=== PATIENT | female | born 1980 | race Caucasian/White ===

== ENCOUNTER → 2018-05-30 18:14 | Outpatient (CLI) | payer OTHER, SELFPAY | PROVIDERS: Visit Provider Nurse Practitioner Family | DX: J00 Acute nasopharyngitis [common cold] (principal); R69 Illness, unspecified ==

== ENCOUNTER → 2019-06-07 15:18 | Outpatient (CLI) | payer OTHER, SELFPAY ==
--- NOTE | 2019-06-07 15:19 | US_ITS ---
PROCEDURE: US TRANSVAGINAL Patient Age:38Y CLINICAL INDICATION: US T/V Heavy bleeding. Dysfunctional uterine bleeding. Cycles every 2 weeks past 4 months. The COMPARISON: PTV US PELVIS-TRANSVAGINAL ONLY from 10/28/2016 FINDINGS: Uterus of enlarged 10.5 cm in length x5 .5 cm AP x 5.8 cm wide. Endometrium thickened 1.4 cm AP. . scar noted. The Several nabothian cyst about the cervical canal. Largest measuring up to 10 mm length. Ovaries appear within normal limits. Both unremarkable: Left ovary: 2 cm x 2.7 cm X 3 cm Right ovary 2.65 cm x 2.2 cm x 3.15 cm. . No fluid cul-de-sac IMPRESSION: Generous, thickened endometrium Uterus enlarged, but no focal fibroid or mass identified The ovaries normal size and unremarkable But no fluid cul-de-sac Dictated by: Isra Bill MD 06/09/2019 21:57 Electronically signed by Isra Bill MD in [place] 06/09/2019 21:57
--- NOTE | 2019-06-07 15:19 | MM_ITS ---
PROCEDURE: MM DIG MAMM BI DX W/CAD CLINICAL INDICATION: rt breast palpable thickness patient had milk duct drain several years ago now has palpable thickness upper-outer quadrant right breast. There is a history of breast cancer in the patient's paternal great grandmother. COMPARISON: No exams were available for comparison TECHNIQUE: Standard CC and MLO images were obtained. R2 CAD reviewed. In addition spot compression MLO and CC views were obtained FINDINGS: The breasts are composed primarily of fat. However there is asymmetrically increased glandular elements seen in the subareolar region right breast and upper outer quadrant right breast. Additional spot compression views of these areas show no suspicious abnormality. Ultrasound performed the same date showed a couple of small benign-appearing cyst upper outer quadrant at approximately 10 o'clock position mid breast. There are no suspicious microcalcifications. IMPRESSION: Fatty type breast parenchyma with asymmetric glandular elements upper-outer quadrant right breast with no suspicious characteristics BI-RAD Category: 2 Benign Finding(s) FOLLOW-UP: 1YR 1 Year Follow-up beginning at age 41 (A letter has been sent to the patient regarding results of the study.) Dictated by: Dr. Bernardo Srinivasan MD 06/08/2019 11:[address] Bernardo Srinivasan MD in [place] 06/08/2019 11:12
== END ==
PROVIDERS: PCP Family Medicine; Visit Provider Nurse Practitioner Obstetrics & Gynecology
DX: N92.0 Excessive and frequent menstruation with regular cycle (principal)
CPT/HCPCS: 76830; 77066

== ENCOUNTER → 2019-06-08 10:18 | Outpatient (CLI) | payer OTHER, SELFPAY ==
--- NOTE | 2019-06-08 10:34 | US_ITS ---
PROCEDURE: US BREAST RT COMPLETE CLINICAL INDICATION: R92.2 Evaluation of asymmetric glandular tissue right breast, questionable area of thickening felt at this location COMPARISON: MM DIG MAMM BI DX W/CAD from 06/07/2019 FINDINGS: There is somewhat diffusely heterogenic appearance to the breast parenchyma. There are few small hypoechoic cystic lesions at the 10 o'clock position mid breast both measuring less than 5 mm in size. There is no suspicious solid lesion. There is a normal appearing node in the axilla. IMPRESSION: No suspicious cystic or solid lesion identified and recommend the patient beginning annual screening mammography at the age of 41. Dictated by: Dr. Bernardo Srinivasan MD 06/08/2019 11:[address] Bernardo Srinivasan MD in [place] 06/08/2019 11:02
[2019-06-08 11:38] LABS: Basophils % 0.6 % (0.1-2.0); Eosinophils % 0.5 % (0.1-12.0); Hematocrit 44.8 % (37.0-47.0); Hemoglobin 14.2 g/dL (12.2-16.2); Lymphocytes # 2.2 K/mm3 (0.7-4.5); Lymphocytes % 28.8 % (10-50); Mean Corpuscular HGB Conc 31.8 g/dL (31.8-35.4); Mean Corpuscular Hemoglobin 29.5 pg (27.0-31.2); Mean Corpuscular Volume 92.6 fl (81-99); Mean Platelet Volume 7.9 fl (7.4-10.4); Monocytes # 0.4 K/mm3 (0.1-1.0); Monocytes % 5.4 % (1.7-9.3); Neutrophils # 4.8 K/mm3 (1.8-7.8); Neutrophils % 64.7 % (37.0-80.0); Platelet Count 339 K/mm3 (142-424); Red Blood Count 4.84 M/mm3 (4.20-5.40); Red Cell Distribution Width 13.8 % (11.5-17.5); White Blood Count 7.5 K/mm3 (4.8-10.8)
[2019-06-08 11:54] LABS: Alanine Aminotransferase 17 U/L (12-78); Albumin Level 3.8 gm/dL (3.4-5.0); Albumin/Globulin Ratio 1.2 (1.1-1.8); Alkaline Phosphatase 87 U/L (46-116); Anion Gap 14.8 mEq/L (5-15); Aspartate Amino Transferase 7 U/L (15-37); Bilirubin,Total 0.4 mg/dL (0.2-1.0); Blood Urea Nitrogen 15 mg/dL (7-18); Calcium 8.8 mg/dL (8.5-10.1); Carbon Dioxide 24 mmol/L (21.0-32.0); Chloride 104 mmol/L (98-107); Chol/HDL Ratio 5.8 (1-3.5); Cholesterol 260 mg/dL (140-200); Creatinine,Serum 0.57 mg/dL (0.55-1.02); Estimated Glomerular Filt Rate 119 ml/min (>60); Free Thyroxine Index 2.3 ug/dL (5.93-13.13); GFR (African American) 144 ML/MIN (>60); Globulin 3.1 gm/dl (1.3-3.2); Glucose 106 mg/dL (74-106); HDL Cholesterol 45 mg/dL (29-89); LDL Cholesterol 193 mg/dL (0-130); Potassium 4.8 mmoL/L (3.5-5.1); Sodium 138 mmol/L (136-145); T4 (Thyroxine) 6.4 ug/dl (4.7-13.3); Thyroid Stimulating Hormone 0.94 uIU/ml (0.358-3.740); Total Protein,Serum 6.9 gm/dL (6.4-8.2); Triglycerides 109 mg/dL (30-200); Triiodothryronine (T3) Uptake 36 % (31-39); VLDL Cholesterol 22 mg/dL (0-40)
== END ==
PROVIDERS: Visit Provider Nurse Practitioner Obstetrics & Gynecology
DX: Z01.419 Encounter for gynecological examination (general) (routine) without abnormal findings (principal); R53.83 Other fatigue; R92.8 Other abnormal and inconclusive findings on diagnostic imaging of breast
CPT/HCPCS: 36415; 76641; 80053; 80061; 84436; 84443; 84479; 85025

== ENCOUNTER → 2020-01-15 16:45 | Outpatient (CLI) | payer OTHER, SELFPAY | PROVIDERS: PCP Family Medicine; Visit Provider Family Medicine | DX: Z03.818 Encounter for observation for suspected exposure to other biological agents ruled out (principal) | CPT/HCPCS: U0003 ==

== ENCOUNTER → 2020-03-22 15:44 | Outpatient (CLI) | payer OTHER, SELFPAY ==
[2020-03-22 16:58] LABS: Basophils % 0.4 % (0.1-2.0); Eosinophils # 0.1 K/mm3 (0.0-0.4); Eosinophils % 0.9 % (0.1-12.0); Hemoglobin 14.1 g/dL (12.2-16.2); Lymphocytes # 2.4 K/mm3 (0.7-4.5); Lymphocytes % 23.6 % (10-50); Mean Corpuscular HGB Conc 32.1 g/dL (31.8-35.4); Mean Corpuscular Hemoglobin 30.3 pg (27.0-31.2); Mean Corpuscular Volume 94.5 fl (81-99); Mean Platelet Volume 7.3 fl (7.4-10.4); Monocytes # 0.6 K/mm3 (0.1-1.0); Monocytes % 5.8 % (1.7-9.3); Neutrophils # 7.2 K/mm3 (1.8-7.8); Neutrophils % 69.3 % (37.0-80.0); Platelet Count 293 K/mm3 (142-424); Red Blood Count 4.66 M/mm3 (4.20-5.40); Red Cell Distribution Width 12.4 % (11.5-17.5); White Blood Count 10.3 K/mm3 (4.8-10.8)
[2020-03-22 18:00] LABS: Anion Gap 12.7 mEq/L (5-15); Blood Urea Nitrogen 15 mg/dl (7-17); Calcium 9.4 mg/dl (8.4-10.2); Carbon Dioxide 24 mmol/L (22.0-30.0); Chloride 106 mmol/L (98-107); Estimated Glomerular Filt Rate 112 ml/min (>60); GFR (African American) 135 ML/MIN (>60); Glucose 98 mg/dl (74-100); Potassium 4.7 mmoL/L (3.5-5.1); Sodium 138 mmol/L (136-145)
[2020-03-22 19:16] LABS: HCG Qualitative, Serum Negative (Negative)
[2020-03-22 19:51] LABS: Coronavirus 19 IgG Antibody Positive (Negative); Coronavirus 19 IgM Antibody Negative (Negative)
== END ==
PROVIDERS: Visit Provider Nurse Practitioner Obstetrics & Gynecology
DX: Z01.818 Encounter for other preprocedural examination (principal); N92.0 Excessive and frequent menstruation with regular cycle
CPT/HCPCS: 36415; 80048; 84703; 85025; 86328

== ENCOUNTER 2020-03-24 06:10 | Day surgery (SDC) | payer OTHER, SELFPAY ==
[2020-03-24] VITALS (12 sets, daily range): BP systolic 108–163; BP diastolic 60–98; PULSE 85–101; RESP 16–20; TEMP 36.2–36.7; O2SAT 93–96; BMI 34.5
--- NOTE | 2020-03-24 08:02 | HMH.OPNOTE ---
Date of procedure: 03/24/20 Pre-op Diagnosis:: Menorrhagia Post-op Diagnosis:: Menorrhagia Procedure performed:: Hysteroscopy, dilation and curettage, NovaSure ablation Surgeon:: Ken Jeong MD HAND II THERMAL CUTTER:: Anthony Conroy Anesthesia: LMA Estimated blood loss (mL): 50 Operative findings:: She had an anteverted somewhat bulky uterus. The endometrium was lush. There were no polyps. The uterus sounded to 10 cm. Operative note:: She was taken to the operating room where LMA anesthesia was found be adequate. She was prepped and draped in the normal sterile fashion in the lithotomy position. A weighted speculum was placed in the vagina and the anterior lip of the cervix was grasped with a tenaculum. The cervix was then dilated to approximately 6 mm. I then inserted a hysteroscope into the uterine cavity and the findings were as previously dictated. I then performed a gentle curettage with a medium curette. I then sounded the uterus and determine the length of the uterus. The uterus sounded to 10 cm. The length was 6.5 cm. The width was 4.5 cm. This was placed into the NovaSure device. I then inserted the NovaSure device and determine the width of the endometrial cavity. I then ran the device through its program. I further inspected the endometrial cavity and was found to be completely charred. I then injected 30 cc of 0.5% ropivacaine at the 3:00, 5:00, 7:00, and 9:00 positions of the cervix. She tolerated procedure well and was taken to the recovery room in excellent condition. All sponge and instrument counts were correct. The estimated blood loss was less than 50 cc. Condition: stable Disposition: PACU Specimens:: Endometrial curettings Complications:: None
--- NOTE | 2020-03-24 08:12 | HMH.ANESCL ---
[facility] Anesthesia Checklist - Patient Identification Patient Identification: Arm Band, Verbal (Name & ) - Structural Data Admitted From: Home Planned Operative Procedure/s: d and c Consent for Planned Operative Procedure(s) Verified: Yes Verified Documents: History and Physical - NPO Status Verified Time NPO: 00:00 - Chart Verification Results Verified: CBC, BMP - Additional verifications Patient : No Anesthesia Reactions: No Hx Blood Transfusions: No Blood Transfusion Reaction: No Cephalosporin Allergy: No Previous Colonoscopy: No - Cardiovascular Assessment Heart Sounds: S1 & S2 Pulse Strength: Baseline Pulse Rhythm: Regular Peripheral Edema: No - Airway Assessment C-Spine Mobility Assessed: Yes TMJ Mobility Assessed: Yes Dentition: Good Dentition - Neurological Assessment Level of Consciousness: Awake, Alert, Appropriate Hx Seizures: No Numbness or tingling in extremities: No - Anesthesia Plan Anesthesia Risk discussed: Yes Anesthesia Plan: Verified ASA Class: II Anesthesia Type: General [facility] History I have reviewed the patient's past medical history: Yes Medical History: Denies:: Cancer, Diabetes Mellitus Type 1, Diabetes Mellitus Type 2, Internal Pacemaker, MRSA, Seizures *Have you ever received a pneumonia vaccine?: No *Have you received a flu vaccine this season?: No Other Medical History: Reports: Other. Denies: Blood Transfusion Reaction Anesthesia experience/problems:: none Laterality Cases: Bilateral: Tonsillectomy Other Surgeries: Yes: , Dilation and Curettage, Tubal Ligation, Other. 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
--- NOTE | 2020-03-24 08:13 | HMH.ANESI ---
[facility] Anesthesia Record Part I Intake, IV Amount: 500 Estimated blood loss (mL): 10 Urine output (mL): 0 Blood Products used (#): none Blood Pressure: 142/93 SaO2: 94 Pulse Rate: 101 Respiratory Rate: 20 Temperature: 97.2 F Patient is:: Drowsy, Stable Stable to PACU at:: 08:10
--- NOTE | 2020-03-24 09:48 | P.PN_ITS ---
[facility] Anesthesia Record Part II Discharge Time: 08:40 Destination: Surgical Day Care (OP Surgery) PACU nurse assessment reviewed?: Yes Patient Condition:: Good Anesthesia Complications:: None Swallowing reflex intact?: Yes Cyanosis?: No Blood Pressure: 129/74 Pulse Rate: 92 Temperature: 98.0 F Mental Status: Alert & Oriented Pain level:: 3 Nausea and/or vomitting:: None Intake, IV Amount: 50
== END 2020-03-24 09:35 | disposition home or self-care (01) ==
LOC: OR 06:11
PROVIDERS: PCP Family Medicine; Visit Provider Nurse Practitioner Obstetrics & Gynecology
PROC: 0U5B8ZZ Destruction of Endometrium, Via Natural or Artificial Opening Endoscopic (ICD-10-PCS; CPT 58563; principal; 2020-03-24 07:30)
DX: N92.0 Excessive and frequent menstruation with regular cycle (principal); Z79.899 Other long term (current) drug therapy; Z98.51 Tubal ligation status; Z88.6 Allergy status to analgesic agent; Z88.0 Allergy status to penicillin; Z91.048 Other nonmedicinal substance allergy status; N85.2 Hypertrophy of uterus
CPT/HCPCS: 58563; 96374

== ENCOUNTER → 2021-07-26 09:56 | Outpatient (CLI) | payer BC, SELFPAY ==
[2021-07-26 12:09] LABS: HCG,Quantitative < 2 mIU/ml (0-5.42)
== END ==
PROVIDERS: PCP Family Medicine; Visit Provider Nurse Practitioner Obstetrics & Gynecology
DX: N92.6 Irregular menstruation, unspecified (principal)
CPT/HCPCS: 36415; 84702

== ENCOUNTER → 2022-02-07 10:54 | Outpatient (CLI) | payer BC, SELFPAY ==
--- NOTE | 2022-02-07 10:55 | MM_ITS ---
PROCEDURE INFORMATION: Exam: MG Bilateral Screening 3D Mammography Exam date and time: 02/07/2022 10:50 AM Age: 41 years old Clinical indication: Screening mammogram. TECHNIQUE: Imaging protocol: Bilateral Screening tomosynthesis and 2D mammography including computer-aided detection (CAD) when performed. COMPARISON: 1. MG MM DIG MAMM BI DX W/CAD 06/07/2019 4:37 PM 2. US BREAST RT COMPLETE 06/08/2019 10:25 AM FINDINGS: MAMMOGRAPHY: Breast composition: The breast is heterogeneously dense, which may obscure small masses. Mass: Stable benign-appearing nodule is present in the right breast. No new or morphologically suspicious nodule has developed to suggest malignancy. Architectural distortion: No new or suspicious architectural distortion. Calcifications: No new or suspicious calcifications are present Asymmetric density: No new or suspicious asymmetric density is present Skin thickening: None. Axillary adenopathy: None. IMPRESSION: No mammographic evidence of malignancy. Recommend annual screening mammography unless otherwise clinically indicated. ASSESSMENT: BI-RADS category 2: Benign
== END ==
PROVIDERS: PCP Family Medicine; Visit Provider Nurse Practitioner Obstetrics & Gynecology
DX: Z12.31 Encounter for screening mammogram for malignant neoplasm of breast (principal)
CPT/HCPCS: 77063; 77067

== ENCOUNTER → 2022-02-14 08:50 | Outpatient (CLI) | payer BC, SELFPAY | PROVIDERS: PCP Nurse Practitioner Family; Visit Provider Nurse Practitioner Family | DX: U07.1 COVID-19 (principal); R05.9 Cough, unspecified | CPT/HCPCS: C9803; U0003; U0005 ==

== ENCOUNTER 2022-05-13 06:50 | Emergency (ER) | payer BC, SELFPAY ==
[2022-05-13] VITALS (8 sets, daily range): BP systolic 131–167; BP diastolic 86–109; PULSE 87–114; RESP 16–19; TEMP 36.7; O2SAT 96–99; BMI 35.9
--- NOTE | 2022-05-13 06:56 | ECG_ITS ---
APPROVED REPORT Exam: Resting ECG HR:115 bpm ECG Measurements Heart Rate 115 AXES AR 124 P 58 QRSd 93 QRS 65 QT 319 T 46 QTc 387 Conclusion SINUS TACHYCARDIA LOW QRS VOLTAGE IN PRECORDIAL LEADS [QRS DEFLECTION < 1.0 mV IN CHEST LEADS] ABNORMAL RHYTHM ECG UNCONFIRMED REPORT Electronically signed by : Anthony Herbert MD 05/13/2022 19:58:42
--- NOTE | 2022-05-13 07:02 | PC.NURSE ---
dr. larson at bedside
--- NOTE | 2022-05-13 07:08 | XR_ITS ---
FINAL REPORT TECHNIQUE: Single view chest CLINICAL HISTORY: CHEST PRESSURE FINDINGS: A single view of the chest was obtained. The heart and mediastinum are within normal limits. There is mild bibasilar atelectasis or pneumonia. There is no pneumothorax. Osseous structures are unremarkable. IMPRESSION: There is mild bibasilar atelectasis or pneumonia. Reviewed, Interpreted and Dictated by Pramod Thibodeaux III, MD Transcribed by Raquel Loaiza Authenticated and [facility]
--- NOTE | 2022-05-13 07:19 | CT_ITS ---
FINAL REPORT CLINICAL HISTORY: HEADACHE FINDINGS: Axial images of the head were obtained without contrast. Coronal reformatted images were also obtained.This study was performed with techniques to keep radiation doses as low as reasonably achievable (ALARA). Individualized dose reduction techniques using automated exposure control or adjustment of mA and/or kV according to the patient''s size were employed. There is no evidence of intracranial hemorrhage or mass. The ventricular size is within normal limits. There is no evidence of shift of the midline structures. No abnormal extra axial fluid collection is identified. No skull abnormality is seen on the bone window images. There is a retention cyst or polyp in the right maxillary sinus. IMPRESSION: No acute intracranial abnormality. Retention cyst or polyp in the right maxillary sinus. Reviewed, Interpreted and Dictated by Pramod Thibodeaux III, MD Transcribed by Raquel Loaiza Authenticated and [facility]
--- NOTE | 2022-05-13 07:20 | HMH.EDCP ---
Discharge Plan Disposition Patient Disposition: Home, Self-Care Chief Complaint: Chest Pain Prescriptions Prescriptions: No Action loratadine [Claritin] 10 mg tablet 10 mg PO DAILY psyllium husk [Fiber-Caps (psyllium husk)] 0.52 gram capsule 0.52 g PO DAILY cholecalciferol (vitamin D3) 4,000 unit capsule 4,000 unit PO DAILY omega-3 fatty acids [Fish Oil Concentrate] 1,000 mg capsule 1,000 mg PO DAILY terconazole 0.8 % cream 1 appful VAGINAL HS 3 Days Qty: 20 1RF bupropion HCl [Wellbutrin XL] 150 mg tablet extended release 24 hr 150 mg PO DAILY Qty: 30 5RF ibuprofen 200 MG capsule 400 mg PO Q8HP PRN (Reason: PAIN) Referrals Follow up/Referrals: Ernesto Aleman MD [Primary Care Provider] - See instructions Clinical Impressions Clinical Impression: Hypertensive urgency, Chest pain Instructions Patient Instructions: DI for Atypical Chest Pain Discharge ED Provider: Mauricio Zambrano Chest Pain HPI General Chief Complaint: Chest Pain Stated Complaint: B/P 185/102,tightness in chest Time Seen by Provider: 05/13/22 07:20 Mode of Arrival: Ambulatory Source of Information: Patient, Spouse and Medical Record Limitations: No Limitations Description of Symptoms (Recalled from ER Triage Doc. by RN): PT STATES SHE WOKE UP AROUND 0200 NOT FEELING WELL WENT TO WORK CONTINUED TO HAVE DIZZINESS AND CHEST PRESSURE History of Present Illness HPI narrative: has had henderson over the last few days - diffuse w/o prev henderson and no fever/rash or trauma and has not felt well this am has had feeling of dizziness and chest pressure - no hx of ht dis - MD complaint: chest pain indicative of cardiac Onset (ago): hour(s) Duration: constant Activity at onset: awoke with symptoms Pain location: substernal Severity: moderate Risk Factors for CAD: Family Hx of CAD Treatments prior to or on arrival for Cardiac Chest Pain: none YUE Score for Non-Stemi Age of Patient: 40-49 years old Heart Rate: 110-149 bpm Systolic Blood Pressure: 140-159 mmHg Related Data On Oral Contraceptives: No Home Medications Medication Instructions Recorded Confirmed cholecalciferol (vitamin D3) 100 4,000 unit PO DAILY Supplement 05/25/19 03/18/22 mcg (4,000 unit) capsule loratadine 10 mg tablet (Claritin) 10 mg PO DAILY ALLERGIES 05/25/19 03/18/22 psyllium husk 0.52 gram capsule 0.52 g PO DAILY FIBER 05/25/19 03/18/22 (Fiber-Caps (psyllium husk)) omega-3 fatty acids 1,000 mg 1,000 mg PO DAILY Supplement 03/07/20 03/18/22 capsule (Fish Oil Concentrate) ibuprofen 200 mg capsule 400 mg PO Q8HP PRN PAIN 03/24/20 03/18/22 Previous Rx's Medication Instructions Recorded terconazole 0.8 % vaginal cream 1 appful vaginal HS 3 days #20 04/14/20 grams bupropion HCl 150 mg 24 hr tablet, 150 mg PO DAILY #30 tabs 01/29/22 extended release (Wellbutrin XL) Allergies Allergy/AdvReac Type Severity Reaction Status Date / Time adhesive tape Allergy Intermediate I-RASH Verified 03/18/22 13:56 Penicillins Allergy Intermediate I-HIVES Verified 03/18/22 13:56 codeine AdvReac Mild TOO SLEEPY Verified 03/18/22 13:56 PFSH PFSH Disclaimer: The information contained in this section may have been updated after the patient was seen, as this information can be updated by other users. Medical History (Updated 05/13/22 @ 09:08 by Mauricio Zambrano MD) Depression Surgical History (Updated 05/13/22 @ 07:19 by Grace Ellsworth RN) H/O section Tubal ligation status Family History (Updated 05/13/22 @ 07:19 by Grace Ellsworth RN) No significant family history Social History (Updated 05/13/22 @ 07:19 by Grace Ellsworth RN) Smoking Status: Former smoker pack-years: 1 second hand exposure: Yes alcohol intake: never substance use type: other current occupational status: employed Travel in the last 8 weeks: None household members: family housing: house current occupation: [employer]
[2022-05-13 07:22] LABS: Basophils # 0.1 K/mm3 (0-0.2); Basophils % 0.9 % (0.1-2.0); Eosinophils # 0.1 K/mm3 (0.0-0.4); Eosinophils % 0.9 % (0.1-12.0); Hematocrit 42.4 % (37.0-47.0); Hemoglobin 14.3 g/dL (12.2-16.2); Lymphocytes # 1.6 K/mm3 (0.7-4.5); Mean Corpuscular HGB Conc 33.7 g/dL (31.8-35.4); Mean Corpuscular Hemoglobin 30.5 pg (27.0-31.2); Mean Corpuscular Volume 90.6 fl (81-99); Mean Platelet Volume 7.8 fl (7.4-10.4); Monocytes # 0.4 K/mm3 (0.1-1.0); Monocytes % 5.1 % (1.7-9.3); Neutrophils # 5.3 K/mm3 (1.8-7.8); Neutrophils % 72.1 % (37.0-80.0); Platelet Count 322 K/mm3 (142-424); Red Blood Count 4.67 M/mm3 (4.20-5.40); Red Cell Distribution Width 12.9 % (11.5-17.5); White Blood Count 7.4 K/mm3 (4.8-10.8)
--- NOTE | 2022-05-13 07:25 | PC.NURSE ---
patient given a pillow and lights turned out. Spouse at BS. Call light within reach
[2022-05-13 07:27] LABS: Chloride 108 mmol/L (98-107); Sodium 136 mmol/L (136-145)
[2022-05-13 07:29] LABS: Blood Urea Nitrogen 13 mg/dl (7-17); Creatinine Clearance Estimated 199 mL/min (50-200); Estimated Glomerular Filt Rate 111 ml/min (>60); GFR (African American) 134 ML/MIN (>60)
[2022-05-13 07:30] LABS: Alanine Aminotransferase 21 U/L (12-78); Albumin Level 4.1 g/dl (3.5-5.0); Albumin/Globulin Ratio 1.4 (1.1-1.8); Alkaline Phosphatase 119 U/L (38-126); Aspartate Amino Transferase 22 U/L (14-36); Bilirubin,Total 0.2 mg/dl (0.2-1.3); Calcium 9.1 mg/dl (8.4-10.2); Carbon Dioxide 24 mmol/L (22.0-30.0); Glucose 183 mg/dl (74-100); Total Protein,Serum 7.1 g/dl (6.3-8.2)
--- NOTE | 2022-05-13 07:33 | PC.NURSE ---
pt to radiology via wheelchair with technology specialist
--- NOTE | 2022-05-13 07:40 | PC.NURSE ---
pt returned from radiology via wc with technician submarine cable equipment
--- NOTE | 2022-05-13 07:41 | PC.NURSE ---
PT RETURNED FROM CT
[2022-05-13 07:47] LABS: Troponin I < 0.01 ng/ml (0.00-0.034)
--- NOTE | 2022-05-13 08:13 | PC.NURSE ---
DR RICHARDS AT BEDSIDE TO REEVALUATE PT
--- NOTE | 2022-05-13 08:59 | PC.NURSE ---
Notified lab of A1C add on, spoke to Heena
--- NOTE | 2022-05-13 09:11 | PC.NURSE ---
pt ambulatory to restroom and back to ED room 6 without complications. Pt given a warm blanket, call light within reach and has been notified that we are still waiting on one lab to come back. She reports her RODRIGUEZ is much better at this time
[2022-05-13 09:23] LABS: Hemoglobin A1C 7.6 % (4.0-6.0)
== END 2022-05-13 09:24 | disposition home or self-care (01) ==
PROVIDERS: Emergency Provider Emergency Medicine; PCP Family Medicine
DX: R07.9 Chest pain, unspecified (principal); I16.0 Hypertensive urgency; Z79.899 Other long term (current) drug therapy; Z88.0 Allergy status to penicillin; Z88.6 Allergy status to analgesic agent
CPT/HCPCS: 70450; 71045; 80053; 83036; 84484; 85025; 93005; 96365; 96375; 99285

== ENCOUNTER 2023-07-16 08:18 | Outpatient (CLI) | payer BC, SELFPAY ==
--- NOTE | 2023-07-16 08:20 | MM_ITS ---
PROCEDURE INFORMATION: Exam: MG Bilateral Screening 3D Mammography Exam date and time: 07/16/2023 8:08 AM Age: 43 years old Clinical indication: Screening examination TECHNIQUE: Imaging protocol: Bilateral Screening tomosynthesis and 2D mammography including computer-aided detection (CAD) when performed. COMPARISON: 1. MG MM DIG SCREENING MAMM BI W/CAD 02/07/2022 10:50 AM 2. MG MM DIG MAMM BI DX W/CAD 06/07/2019 4:37 PM FINDINGS: MAMMOGRAPHY: Breast composition: The breasts are heterogeneously dense, which may obscure small masses. Mass: No new or suspicious masses. Architectural distortion: None. Calcifications: No suspicious calcifications. Asymmetric density: None. Skin thickening: None. Axillary adenopathy: None. IMPRESSION: No mammographic evidence of malignancy. Annual screening is recommended unless otherwise clinically indicated. ASSESSMENT: BI-RADS Category 1: Negative
== END 2023-07-16 23:59 ==
LOC: RAD 08:20
PROVIDERS: PCP Family Medicine; Visit Provider Nurse Practitioner Obstetrics & Gynecology
DX: Z12.31 Encounter for screening mammogram for malignant neoplasm of breast (principal)
CPT/HCPCS: 77063; 77067

== ENCOUNTER 2024-04-09 07:52 | Day surgery (SDC) | payer BC, SELFPAY ==
[2024-04-07 10:12] VITALS: BMI 32.8
[2024-04-09 08:12] VITALS: BP 140/83; PULSE 82; RESP 18; TEMP 36.6; O2SAT 99
[2024-04-09 08:16] LABS: Urine Pregnancy, HCG Qual. Negative (Negative)
[2024-04-09] MEDS: LACTATED RINGERS 1000ML 1,000 ML 25 ML IV (08:24)
[2024-04-09 08:37] LABS: POC Glucose,Bedside 110 (70-110)
--- NOTE | 2024-04-09 08:46 | EXP.ANES.CKL ---
[facility] Disclaimer: The information contained in this section may have been updated after the patient was seen, as this information can be updated by other users. Medical History (Updated 04/09/24 @ 08:23 by Namita Caldwell RN) Hx of factor V Leiden mutation Depression Surgical History (Updated 04/09/24 @ 08:23 by Namita Caldwell RN) History of surgery History of endometrial ablation H/O section Tubal ligation status Family History (Updated 04/09/24 @ 08:23 by Namita Caldwell RN) Other Diabetes Social History Smoking Status: Former smoker second hand exposure: Yes alcohol intake: never substance use type: other current occupational status: employed Travel in the last 8 weeks: None household members: family housing: house current occupation: [employer] current occupational exposures/hazards: No caffeine: Yes [facility] Anesthesia Checklist Patient Identification Patient Identification: Arm Band and Family Structural Data Admitted From: Home Planned Operative Procedure/s: colonoscopy Consent for Planned Operative Procedure(s) Verified: Yes Verified Documents: Surgical Consent and History and Physical NPO Status Verified Time NPO: 00:00 Additional verifications Patient : No Anesthesia Reactions: No Hx Blood Transfusions: No Blood Transfusion Reaction: No Cephalosporin Allergy: No Previous Colonoscopy: Yes Airway Assessment Mallampati Score:: Class III C-Spine Mobility Assessed: Yes Dentition: Good Dentition Neurological Assessment Level of Consciousness: Awake, Alert, Appropriate and Follows Commands Hx Seizures: No Anesthesia Plan Anesthesia Risk discussed: Yes ASA Class: II Anesthesia Type: MAC Preoperative Comments Pre-Operative Comments: Woke up during anesthesia. NIDDM. Hypertension.
--- NOTE | 2024-04-09 09:04 | HMH.SCOPE ---
Procedure: Date: 04/09/24 Patient Date of :: 1980 Procedure Performed:: Total colonoscopy to terminal ileum with multiple polypectomy Indications:: Patient is a 43-year-old female who presents for surveillance colonoscopy. She had previous colonoscopy 05/26/[address] Dixon for bowel changes. She was found to have diverticulosis and a transverse colon polyp which revealed adenomatous changes with mild atypia consistent with early tubular adenoma. She states that she has problems with chronic constipation and was diagnosed with IBS at an early age. She states that she moves her bowels about once per week and often has to take a laxative. Performing Provider:: Pramod Hinson MD Referring Provider:: Anthony Herbert MD Sedation:: MAC sedation Procedure:: Patient history was obtained and appropriate physical examination was performed. Patient's medications and allergies were reviewed. Informed consent was obtained after explaining the benefits, alternatives, and risks of the procedure including, but not limited to, bleeding, perforation, missed lesions, and adverse reaction to anesthesia medications. Patient was transported to endoscopy procedure room. Patient was connected to monitoring devices. Throughout the procedure the patient's blood pressure, pulse, and oxygen saturations were monitored continuously. Patient identification and planned procedure were verified by the staff. Patient was positioned in lateral decubitus position. Digital anorectal exam was performed. Variable stiffness Olympus colonoscope was inserted and advanced under direct visualization to the cecum. Adequacy of the colonic preparation was noted. The colonoscope was advanced a short distance into the terminal ileum. The colonoscope was then slowly withdrawn while carefully examining the color, texture, anatomy, and integrity of the mucosoa circumferentially. Within the rectum retroflexion was performed. Colonoscope was then withdrawn. Impression: Colonic preparation was somewhat fair mostly in the right colon with some opaque stool. High-volume trans colonoscopic irrigation and suctioning was performed to allow for adequate visualization. There was actually thick succus in the terminal ileum. Distal to the hepatic flexure there was a confluence of several small polyps which were removed with cold snare and biopsy forceps. At the hepatic flexure there is a small diminutive polyp removed with cold snare. Transverse colon there is a small polyp removed with cold snare. In the descending colon there was a tiny diminutive polyp removed with biopsy forceps. The distal sigmoid colon there was a small diminutive polyp removed with biopsy forceps. In the rectosigmoid region there were 2 polyps removed with cold snare. She had a total of 7 polyps removed. There was some rare sigmoid diverticulosis. Findings:: Fair prep Multiple small polyps removed, total of approximately 7 tiny polyps removed with a variety of technique. Recommendations:: Follow-up colonoscopy pending pathology. Likely 2 years with multi day prep Complications:: None immediately apparent Estimated blood obtained (mL): 2 Colonoscopy Component Colonoscopy Component Was a colonoscopy performed during today's procedure?: Yes Recommended follow up colonoscopy of at least 10 years?: No If no, follow up colonoscopy recommended in ___ years?: 2 Reason for not recommending >/= 10 yr follow-up interval?: See above
[2024-04-09 09:15] VITALS: O2SAT 99
[2024-04-09 10:05] VITALS: BP 121/71; PULSE 80; RESP 18; TEMP 36.4; O2SAT 99
[2024-04-09 10:15] VITALS: BP 107/71; PULSE 76; RESP 18; O2SAT 100
[2024-04-09 10:25] VITALS: BP 130/61; PULSE 74; RESP 18; O2SAT 100
[2024-04-09 10:35] VITALS: BP 115/71; PULSE 71; RESP 18; O2SAT 98
== END 2024-04-09 10:35 | disposition home or self-care (01) ==
PROVIDERS: PCP Internal Medicine Adolescent Medicine; Visit Provider Surgery
PROC: 0DJD8ZZ Inspection of Lower Intestinal Tract, Via Natural or Artificial Opening Endoscopic (ICD-10-PCS; CPT 45380; principal; 2024-04-09 09:30)
DX: K63.5 Polyp of colon (principal); Z09 Encounter for follow-up examination after completed treatment for conditions other than malignant neoplasm; Z86.0100 Personal history of colon polyps, unspecified; K57.30 Diverticulosis of large intestine without perforation or abscess without bleeding
CPT/HCPCS: 45380; 45385; 81025; 82962; J7120

== ENCOUNTER 2024-09-08 13:19 | Outpatient (CLI) | payer BC, SELFPAY ==
--- NOTE | 2024-09-08 13:21 | MM_ITS ---
PROCEDURE INFORMATION: Exam: MG Bilateral Screening 3D Mammography Exam date and time: 09/08/2024 1:24 PM Age: 44 years old Clinical indication: Screening examination. TECHNIQUE: Imaging protocol: Bilateral Screening tomosynthesis and 2D mammography including computer-aided detection (CAD) when performed. COMPARISON: 1. MG MM DIG SCREENING MAMM BI W/CAD 07/16/2023 8:08 AM 2. MG MM DIG SCREENING MAMM BI W/CAD 02/07/2022 10:50 AM FINDINGS: MAMMOGRAPHY: Breast composition: There are scattered areas of fibroglandular density. Mass: None. Architectural distortion: None. Calcifications: No suspicious calcifications. Asymmetric density: None. Skin thickening: None. Axillary adenopathy: None. IMPRESSION: No mammographic evidence of malignancy. Annual screening is recommended unless otherwise clinically indicated. ASSESSMENT: BI-RADS Category 1: Negative.
== END 2024-09-08 23:59 | disposition home or self-care (01) ==
LOC: RAD 13:19
PROVIDERS: PCP Internal Medicine Adolescent Medicine; Visit Provider Nurse Practitioner Obstetrics & Gynecology
DX: Z12.31 Encounter for screening mammogram for malignant neoplasm of breast (principal)
CPT/HCPCS: 77063; 77067

== ENCOUNTER 2025-03-27 19:51 | Emergency (ER) | payer BC, SELFPAY ==
[2025-03-27 19:58] VITALS: BP 160/93; PULSE 99; RESP 16; TEMP 36.6; O2SAT 100; BMI 31.9
--- OUTSIDE RECORDS SUMMARY | 2025-03-27 20:13 | XMS_ITS | Data Portability ---
Author Organization MELY JAYDE Rees [facility]OS[facility] Address [address] [place] [address] Care Team Providers Care Office Messenger Helper Name Role Phone [facility] Primary Care Provider Assessment Encounter Date Assessment Date Assessment LastModified by Organization Details LastModified Time 09/18/2023 09/18/2023 Patient with InterStim, end-of-life. We discussed option of battery exchange versus device removal of all components with replacement of newer device. She wishes to have only battery exchange. [email or web address] Not available 09/19/2023 08:22:41 10/21/2023 10/21/2023 SURGERY DATE: 10/21/2023 PREOPERATIVE DIAGNOSIS: Urinary urgency with urge incontinence POSTOPERATIVE DIAGNOSIS: Urinary urgency with urge incontinence PROCEDURE: Incision and subcutaneous removal of and replacement of sacral nerve neurostimulator with electronic analysis and programming involving multiple parameters SURGEON: Bo Underwood MD ANESTHESIA: General ESTIMATED BLOOD LOSS: <5 ml COMPLICATIONS: None. SPECIMENS: None INDICATIONS: Urinary urgency with urge incontinence OPERATIVE NOTE: Patient was correctly identified in the preoperative holding area. Informed consent was obtained after risks and benefits were once again discussed. She is taken to the operative she to room and placed in prone position on the operative table. Anesthesia induced. All pressure points padded. Proper timeout procedure completed. Pillows were placed under the shins the shins to allow the toes to dangle freely. The patient was prepped and draped in normal sterile fashion. The previous incision was infiltrated with local injectable analgesia. Incision made and opened through subcutaneous and adipose tissue to prior Interstim battery. Supplied screwdriver used to loosen screw and lead removed from battery. The lead was tested with good responses at all four electrodes. The lead was cleansed of body fluid and dried. The lead was inserted into the header of the InterStim Neurostimulator until the tip was visualized at the distal window. The single set screw was tightened. The neurostimulator was placed into the subcutaneous pocket with the etched identification side placed upwards and the excessive lead wrapped counterclockwise around the neurostimulator. The programming head was placed over the implanted neurostimulator in a sterile cover to ensure adequate lead connection and that parameters were within normal limits. Impedances were confirmed to be within normal limits. The wounds were irrigated with antibiotic solution and water and closed in multiple layers (3) including 3-0 Vicryl and 4-0 Monocryl with Dermabond. Sponge counts, needle counts, instrument counts were correct at the conclusion of procedure. Tegaderm was placed over incisions. DISPOSITION: The patient tolerated the procedure well. She was taken to the recovery room in stable condition. [email or web address] Not available 10/21/2023 15:26:20 Plan of Treatment Reminders Order Date Submit Date Provider Last Modified By Organization Details Last Modified Time Details Appointments None recorded . Lab urinalys is panel, auto 2023 024 [email or web address] [facility], [address] [place] [address] , [address], [place], [address], 08:22:44 Referral None recorded . Procedures None recorded . Surgeries revision or removal of peripher al or gastric neurosti mulator pulse generato r or miller head (SURG) 2023 024 [email or web address] [facility] Professional Charges, [address] [facility], [facility] [address], [place], [address], 4 10:59:08 Imaging None recorded . Medication Orders hydrocod one 7.5 mg-aceta minophen 325 mg tablet 2023 024 [facility], [address], [address], 15:27:39 Patient TargetsNo targets recorded. Patient InstructionsNo instructions recorded. Reason for Referral None Reported. Results Created Date Observation Date Name Description Value Unit Range Abnormal Flag Note LastModifiedBy Organization Detail LastModifiedTime 09/18/19 24 09/18/2023 urina lysis panel , auto Unknown Analyte Clean Catch Not Available [facility] With [address], [place], [address], 09/18/2023 18:44:08 09/18/19 24 09/18/2023 urina lysis panel , auto Unknown Analyte Yellow Not Available [facility] With [address], [place], [address], 09/18/2023 18:44:08 09/18/19 24 09/18/2023 urina lysis panel , auto Unknown Analyte Clear Not Available [facility] With [address], [place], [address], 09/18/2023 18:44:08 09/18/19 24 09/18/2023 urina lysis panel , auto Unknown Analyte 1.025 Not Available [facility] With [address], [place], [address], 09/18/2023 18:44:08 09/18/19 24 09/18/2023 urina lysis panel , auto Unknown Analyte 1.003- 1.035 Not Available [address], [place], [address], 09/18/2023 18:44:08 09/18/19 24 09/18/2023 urina lysis panel , auto Unknown Analyte 5.0 Not Available [facility] With [address], [place], [address], 09/18/2023 18:44:08 09/18/19 24 09/18/2023 urina lysis panel , auto Unknown Analyte 5.0-8. 0 Not Available [facility] With [address], [place], [address], 09/18/2023 18:44:08 09/18/19 24 09/18/2023 urina lysis panel , auto Unknown Analyte Negati ve Not Available [facility] With [address], [place], [address], 09/18/2023 18:44:08 09/18/19 24 09/18/2023 urina lysis panel , auto Unknown Analyte Negati ve Not Available [facility] With [address], [place], [address], 09/18/2023 18:44:08 09/18/19 24 09/18/2023 urina lysis panel , auto Unknown Analyte Negati ve Not Available [facility] With [address], [place], [address], 09/18/2023 18:44:08 09/18/19 24 09/18/2023 urina lysis panel , auto Unknown Analyte Negati ve Not Available [facility] With [address], [place], [address], 09/18/2023 18:44:08 09/18/19 24 09/18/2023 urina lysis panel , auto Unknown Analyte Negati ve Not Available [facility] With [address], [place], [address], 09/18/2023 18:44:08 09/18/19 24 09/18/2023 urina lysis panel , auto Unknown Analyte Negati ve Not Available [facility] With [address], [place], [address], 09/18/2023 18:44:08 09/18/19 24 09/18/2023 urina lysis panel , auto Unknown Analyte Normal Not Available [facility] With [address], [place], [address], 09/18/2023 18:44:08 09/18/19 24 09/18/2023 urina lysis panel , auto Unknown Analyte Normal Not Available [facility] With [address], [place], [address], 09/18/2023 18:44:08 09/18/19 24 09/18/2023 urina lysis panel , auto Unknown Analyte Negati ve Not Available [facility] With [address], [place], [address], 09/18/2023 18:44:08 09/18/19 24 09/18/2023 urina lysis panel , auto Unknown Analyte Negati ve Not Available [facility] With [address], [place], [address], 09/18/2023 18:44:08 09/18/19 24 09/18/2023 urina lysis panel , auto Unknown Analyte Normal Not Available [facility] With [address], [place], [address], 09/18/2023 18:44:08 09/18/19 24 09/18/2023 urina lysis panel , auto Unknown Analyte Normal 1 mg/dl Not Available [facility] With [address], [place], [address], 09/18/2023 18:44:08 09/18/19 24 09/18/2023 urina lysis panel , auto Unknown Analyte Negati ve Not Available [facility] With [address], [place], [address], 09/18/2023 18:44:08 09/18/19 24 09/18/2023 urina lysis panel , auto Unknown Analyte Negati ve Not Available [facility] With [address], [place], [address], 09/18/2023 18:44:08 09/18/19 24 09/18/2023 urina lysis panel , auto Unknown Analyte Negati ve Not Available [facility] With [address], [place], [address], 09/18/2023 18:44:08 09/18/19 24 09/18/2023 urina lysis panel , auto Unknown Analyte Negati ve Not Available [facility] With [address], [place], [address], 09/18/2023 18:44:08 Result Notes None recorded. Procedures Surgical History Date Name Laterality Status Provider Name and Address Organization Details Recorded Time [facility] 18:41[facility] 18:41:49 [facility] 09/18/[facility]23 18:42:01 Imaging Results None recorded. Procedure Notes None recorded. Medical Equipment None Reported. Allergies Allergen ID Allergen Name Allergen Category Reaction Reaction Severity Criticality Documentation Date Start Date Code Code System Note Provider Name and Address Organization Details Recorded Time 304585 Product containin g penicilli n (product) medicatio n Not available Not available Not available 09/18/2023 38297 8001 SNOMED Murelene Etienne [facility] 18:37:24 689582 codeine medicatio n Not available Not available Not available 09/18/2023 2670 RxNorm Murelene Etienne [facility] 18:37:30 921705 adhesive tape environme nt,medica tion Not available Not available Not available 09/18/2023 Murelene Etienne [facility] 18:37:39 Medications Name Sig Start Date Stop Date Status Note LastModified by Organization Details LastModified Time hydrocodone 7.5 mg-acetamino phen 325 mg tablet Take 1 tablet every 6 hours by oral route as needed. 2023 active Not Available Not Available Not Avai lable ergocalcifer ol (vitamin D2) active Not Available Not Available Not Available ibuprofen active Not Available Not Marcella ilable Not Available Claritin active Not Available Not Avai lable Not Available lisinopril active Not Available Not Av ailable Not Available metformin active Not Available Not Marcella ilable Not Available bupropion HCl active Not Available Not Available Not Available Align (B.infantis) active Not Available Not Available Not Available D3 Plus K2 Dots 25 mcg (1,000 unit)-90 mcg disintegrati ng tablet Take by oral route. active Not Available Not Available Not Available omega 3 1,000 mg-dha 250 mg-epa 750 mg/5 mL oral liquid Take by oral route. active Not Available Not Available Not Available Ozempic 0.25 mg or 0.5 mg (2 mg/3 mL) subcutaneous pen injector Inject by subcutaneou s route. active Not Available Not Available No t Available Vitals Date Recorded Body height Body mass index (BMI) Body weight Provider Name and Address Organization Details Last Updated DateTime 09/18/2023 167.64 cm 31 kg/m2 59721.74 g Sheldon Clifton [facility] 09/18/2023 18:37:12 Social History Question Answer Notes LastModified by Organizat ion Details LastModified Time Tobacco Smoking Status Former Smoker Sheldon Clifton [facility] 09/18/2023 18:41:25 What Was The Date Of Your Most Recent Tobacco Screening? 09/18/2023 Information not available 09/18/2023 Sex: Female Functional Status Question Answer Note LastModified by Organization D etails LastModified Time What is your level of alcohol consumption? None Information not available 09/18/2023 Mental Status None recorded. Family History Relationship Description Onset Age of this Age Resolved Age Notes LastModified by Organization Details LastModified Time Father Diabetes mellitus [email or web address] Not available 2023 18:40:52 Unspecified Relation Kidney stone [email or web address] Not available 09/07 18:41:07 Medical History Condition Response Diabetes Y Hypertension Y Gynecological HistoryNo gynecological history recorded. Obstetrics History GPAL:G 0 P 0 0 0 0 Past Encounters Encounter ID Performer Location Encounter Start Date Encounter Closed Date Diagnosis/Indication Diagnosis SNOMED-CT Code Diagnosis ICD10 Code Diagnosis IMO Codes Diagnosis Note [id number] BO UNDERWOOD MD [facility] [address] [facility],[place] [address] 09/18/2023 14:30:53 09/20/2023 04:41:59 Increased frequency of urination 370704617 R35.0 Overactive urinary bladder 437329107 N32.81 [id number] BO UNDERWOOD MD SURGERY SCHEDULE [address] [place] [address] 10/21/2023 12:20:01 10/21/2023 12:21:39 Postoperative pain 716845761 G89.18 Health Concerns Section Related Observation LastModified by Organization Detai ls LastModified Time None Recorded Concern Status LastModified by Organization Details LastModified Time None Recorded Advance Directives Directive None Recorded Payers Insurance Date Sequence Insurance Name Policy Number Policy Vera Covered Member ID Vera Member ID Guarantor Name 11/21/2023 1 [employer] [id number] Mariam Dlaey [id number] Mariam Daley Notes Date Note Type Note Provider Name and Address Organization Details Recorded Time 09/18/2023 text/html 43-year-old female in the office for my initial evaluation to establish care for history of overactive bladder symptoms and InterStim placement. [place] InterStim [place] [address] Tse. She reports battery exchange approximately 10 years ago. She was referred here by Dr. Aleman. She had recent pain in her back and legs, possibly related to battery end-of-life. Currently she reports no hesitancy. Occasional urgency. Daytime frequency every hour. Nocturia 3 times. No gross hematuria. BO UNDERWOOD MD [address] [place] [address], [phone], [facility] 09/19/2023 08:23:15 OBGyn Episode No OBEpisode recorded.
[2025-03-27 21:55] LABS: Hepatitis C Ab Qual. W/ RFX NEGATIVE (Negative)
[2025-03-27] MEDS: TET/DIPHTH/PERT-ADULT 0.5ML SYRINGE 0.5 ML IM (22:47)
[2025-03-27 22:51] VITALS: PULSE 92; O2SAT 99
[2025-03-27 23:00] VITALS: BP 132/91; PULSE 96; O2SAT 98
--- NOTE | 2025-03-27 23:06 | HMH.EDGENADL ---
Discharge Plan Disposition Patient Disposition: Home, Self-Care Prescriptions Prescriptions: New urzqzdipz-gsbyegke-whinluk ala 50-200-25 mg tablet 1 tab PO DAILY 28 Days Qty: 28 0RF No Action loratadine [Claritin] 10 mg tablet 10 mg PO DAILY cholecalciferol (vitamin D3) 4,000 unit capsule 4,000 unit PO DAILY omega-3 fatty acids [Fish Oil Concentrate] 1,000 mg capsule 1,000 mg PO DAILY lisinopril 10 mg tablet 10 mg PO DAILY ergocalciferol (vitamin D2) 1,250 mcg (50,000 unit) capsule 1,250 mcg PO DAILY metformin 500 mg tablet extended release 24 hr 500 mg PO DAILY Ozempic 0.25 mg or 0.5 mg (2 mg/3 mL) pen injector 0.25 mg SQ WEEKLY Align (B.infantis) 4 mg capsule 4 mg PO DAILY Qty: 30 6RF ibuprofen 200 MG capsule 400 mg PO Q8HP PRN (Reason: PAIN) bupropion HCl [Wellbutrin XL] 150 mg tablet extended release 24 hr 300 mg PO DAILY Rx Instructions: Take 1 tablet by mouth once daily atorvastatin [Lipitor] 40 mg Tablet 40 mg PO HS Referrals Follow up/Referrals: Anthony Herbert MD [Primary Care Provider, Internal Medicine] - See instructions Activity Restrictions/Add. Instructions Additional Instructions/Restrictions: You are being prescribed a medication to prophylactically treat against HIV. Take this for the full 28 days. I do encourage you to follow-up with your primary care physician closely this week. If you develop any new or worsening symptoms, or if you become concerned for your help for any reason, return to the emergency department for evaluation Clinical Impressions Clinical Impression: Accidental needlestick injury due to non-hypodermic needle Instructions Patient Instructions: DI for Skin Abscess Print Language Print Language: [place] Discharge ED Provider: Paul Gill General Adult HPI General Chief complaint: Skin/Abscess/Foreign Body Stated complaint: got stuck by a needle Time Seen by Provider: 03/27/25 22:37 Mode of Arrival: Ambulatory Source of Information: Patient Description of Symptoms (Recalled from ER Triage Doc. 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 History of Present Illness HPI narrative: Mariam Daley is a 44 female with a history of diabetes who presents to the emergency department after an accidental needlestick while at [employer]. The patient states that she was cleaning the garbage can at [employer] when she was accidentally stuck in the finger by needle of unknown source. They state that they were hosting a trunk retreat event and had thousand people at the [employer] today. She states that they immediately squeezed the wound to get the blood out of it. She denies any history of HIV or hepatitis C. Related Data Home Medications ?Medication ?Instructions ?Recorded ?Confirmed cholecalciferol (vitamin D3) 100 4,000 unit PO DAILY Supplement 05/25/19 09/21/24 mcg (4,000 unit) capsule loratadine 10 mg tablet (Claritin) 10 mg PO DAILY ALLERGIES 05/25/19 09/21/24 omega-3 fatty acids 1,000 mg 1,000 mg PO DAILY Supplement 03/07/20 09/21/24 capsule (Fish Oil Concentrate) ibuprofen 200 mg capsule 400 mg PO Q8HP PRN PAIN 03/24/20 09/21/24 ergocalciferol (vitamin D2) 1,250 1,250 mcg PO DAILY 07/16/23 09/21/24 mcg (50,000 unit) capsule lisinopril 10 mg tablet 10 mg PO DAILY 07/16/23 09/21/24 metformin 500 mg tablet,extended 500 mg PO DAILY 07/16/23 09/21/24 release 24 hr semaglutide 0.25 mg or 0.5 mg (2 0.25 mg SQ WEEKLY 07/16/23 09/21/24 mg/3 mL) subcutaneous pen injector (Ozempic) atorvastatin 40 mg tablet (Lipitor) 40 mg PO HS 04/07/24 09/21/24 bupropion HCl 150 mg 24 hr tablet, 300 mg PO DAILY 04/07/24 09/21/24 extended release (Wellbutrin XL) Previous Rx's ?Medication ?Instructions ?Recorded Bifidobacterium infantis 4 mg 4 mg PO DAILY #30 caps 10/30/23 capsule (Align (B.infantis)) bictegravir 50 mg-emtricitabine 1 tab PO DAILY 28 days #28 tabs 03/27/25 200 mg-tenofovir alafenam 25 mg tablet Allergies Allergy/AdvReac Type Severity Reaction Status Date / Time adhesive tape Allergy Intermediate I-RASH Verified 09/21/24 14:44 Penicillins Allergy Intermediate I-HIVES Verified 09/21/24 14:44 codeine AdvReac Mild TOO SLEEPY Verified 09/21/24 14:44 [facility] Disclaimer: The information contained in this section may have been updated after the patient was seen, as this information can be updated by other users. Medical History Hx of factor V Leiden mutation Depression Surgical History History of surgery bladder stimulator History of endometrial ablation H/O section Tubal ligation status Family History Other Diabetes Social History Smoking Status: Never smoker second hand exposure: Yes alcohol intake: never substance use type: other current occupational status: employed Travel in the last 8 weeks?: None household members: family housing: house current occupation: [employer] current occupational exposures/hazards: No caffeine: Yes Have you lived/traveled outside [place] in past 30 days?: No Contact w/someone who lives/traveled outside [place] past 30 days?: No Exposure to someone with infectious disease in past 14 days?: No Do you have a fever (greater than 100.4 F or 38 C)?: No Have you tested positive for COVID-19?: No Exposed to someone with COVID-19 in past 14 days?: No Do you have a sore throat?: No Do you have a cough?: No Do you have any weakness?: No Do you have any diarrhea?: No Are you experiencing any unusual bleeding?: No Do you have any muscle aches/pain?: No Do you have any abdominal pain?: No Are you experiencing loss of taste or smell?: No Other Medical History Have you received the Flu Vaccine for this season: No Have you received the Pneumonia Vaccine: No ROS Obtained: Yes Systems reviewed as appropriate & no additional complaints except as documented Physical Exam General General appearance: alert and in no apparent distress Head Head exam: atraumatic Eye Eye exam: Present normal appearance ENT ENT exam: Present normal external ear exam Neck Neck exam: Present full ROM Chest Chest inspection: Present symmetric chest wall rise Respiratory Respiratory exam: Present normal lung sounds bilaterally; Absent respiratory distress Cardiovascular Cardiovascular exam: Present regular rate and normal rhythm Abdominal Exam Abdominal exam: Present soft; Absent tenderness or guarding Extremities Exam Extremities exam: Present normal inspection Expanded Upper Extremity Exam Right: Hand L/R front image:  1. other (pinpoint puncture wound, no active bleeding) Back Exam Back exam: Present normal inspection Neurological Exam Neurological exam: Present alert and oriented X3 Psychiatric Psychiatric exam: Present normal affect Skin Skin exam: Present warm and dry Medical Decision Making Medical Records Screening: Per USPSTF and CDC recommendations, given the prevalence of disease in our region, it is our hospital?s policy to screen for HIV and viral Hepatitis for all patients aged 18 and over and those with ongoing risk factors. Alex Inquiry Pt receiving controlled substance: No Vital Signs: 03/27/25 19:58 03/27/25 22:51 03/27/25 23:00 Temperature 97.9 F Temperature Source Temporal Artery Scan Pulse Rate 92 H 96 H Pulse Rate [Right] 99 H Respiratory Rate 16 Blood Pressure Blood Pressure [Right Arm] 160/93 H Blood Pressure Mean Blood Pressure Mean [Right Arm] 115 Blood Pressure Source Blood Pressure Source [Right Arm] Automatic Cuff Blood Pressure Position Blood Pressure Position [Right Arm] Sitting 02 Sat by Pulse Oximetry 100 99 98 Oxygen Delivery Method Room Air 03/27/25 23:00 03/27/25 23:15 03/27/25 23:17 Temperature 97.9 F Temperature Source Pulse Rate 85 85 Pulse Rate [Right] Respiratory Rate 16 Blood Pressure 132/91 H 132/91 H Blood Pressure [Right Arm] Blood Pressure Mean 109 Blood Pressure Mean [Right Arm] Blood Pressure Source Automatic Cuff Blood Pressure Source [Right Arm] Blood Pressure Position Sitting Blood Pressure Position [Right Arm] 02 Sat by Pulse Oximetry 98 Oxygen Delivery Method Room Air Lab Data Lab Results 03/27/25 20:32: HCV Ab KERRIE w/Rflx PCR Qn Negative, HIV Ag/Ab Combo Qual Negative Orders (Tests/Meds): ED MEDICATIONS Discontinued Medications Generic Name Dose Route Start Last Admin Trade Name Freq PRN Reason Stop Dose Admin Tetanus/Reduced Diphtheria/Acell Pertussis 0.5 ml 03/27/25 22:37 03/27/25 22:47 Tet/Diphth/Pert-Adult 0.5ml Syringe IM 03/27/25 22:38 0.5 ml .ONCE ONE Administration ORDERS Category Date Time Status HIV Combo Routine Lab 03/27/25 20:32 Completed Hepatitis C Ab Qual. W/ RFX Stat Lab 03/27/25 20:32 Completed Medical Decision Narrative: Mariam Daley is a 44 female with a history of diabetes who presents to the emergency department after an accidental needlestick while at [employer]. The patient states that she was clearing out the garbage can in the bathroom of her [employer] when she was accidentally stuck in the finger by needle of unknown source. She states that they were hosting a trunk retreat event and had thousand people at the [employer] today. She states that they immediately squeezed the wound to get the blood out of it. She denies any history of HIV or hepatitis C. On arrival, patient is hemodynamically stable, afebrile, in no acute distress, breathing comfortably on room air without hypoxia. Physical exam, as stated above, revealed an overall well appearing female in no acute distress. She has a very small, pinpoint puncture wound to the right index finger. No acitve bleeding. She otherwise feels well. HIV and Hep C screening were obtained and were negative. Patient states that she is up to date on her hepatitis B vaccines. Given we are less than 72 hours out from the incident, patient's HIV could be a false negative. Given this, I do feel that patient would benefit from HIV prophylaxis. Patient is otherwise asymptomatic and no other testing is indicated at this time. She is in agreement to pursue this and plans on following up with her PCP this week. she is being discharged with a prescription for daily Bictegravir, Emtricitabine, and Tenofovir Alafenamide combination pill for 28 days. Return precautions were given, all quesitons were answered, she demonstrated understanding and was in agreement with this plan. She was then discharged from the emergency department in stable condition. Critical Care Critical Care Time Critical Care Time: No
[2025-03-27 23:15] VITALS: PULSE 85; O2SAT 98
[2025-03-27 23:17] VITALS: BP 132/91; PULSE 85; RESP 16; TEMP 36.6; O2SAT 98
== END 2025-03-27 23:19 | disposition home or self-care (01) ==
PROVIDERS: Emergency Provider Student in an Organized Health Care Education/Training Program; PCP Internal Medicine Adolescent Medicine
DX: S61.230A Puncture wound without foreign body of right index finger without damage to nail, initial encounter (principal); W46.1XXA Contact with contaminated hypodermic needle, initial encounter
CPT/HCPCS: 86803; 87389; 90471; 90715; 99283; 99284